=== PATIENT | male | born 1990 | race Two or more races ===

== ENCOUNTER 2025-02-22 17:20 | Emergency (ER) | payer SELFPAY ==
[2025-02-22 18:17] VITALS: BP 155/94; PULSE 86; RESP 18; TEMP 36.8; O2SAT 98; BMI 31.9
--- NOTE | 2025-02-22 19:26 | EDNOTE_ITS ---
ED General RME/HPI General Chief complaint: Dental/Oral/Throat Stated complaint: Syncope X 1week ago, sore throat, cough Time Seen by Provider: 02/22/25 19:14 Arrival date/time: 02/22/25 17:20 RME / HPI RME / HPI narrative: 34-year-old male presents with 1 week history of cough, sore throat, fever, and chills. Unknown temperature at home. His sputum is clear. He denies any runny nose or nasal congestion, ear pain, nausea or vomiting, diarrhea or abdominal pain. He states 1 week ago he passed out from coughing, has had none since. Related Data Home Medications ?Medication ?Instructions ?Recorded ?Confirmed Acetaminophen * (TYLENOL *) 1 tab PO Q4-6HRPRN PRN EMA N #0 tabs 07/06/14 docusate sodium 100 mg capsule 100 mg PO QDAY PRN CONS TIPATION #0 07/06/14 (Colace) caps levetiracetam 500 mg tablet 500 mg PO BID #0 tabs 10/18 (Keppra) Previous Rx's ?Medication ?Instructions ?Recorded albuterol sulfate 90 mcg/actuation 2 puff inhalation Q 4H PRN 02/22/25 aerosol inhaler shortness of breath or wheez ing #8.5 grams azithromycin 250 mg tablet See Rx Instructions PO .COM PLEX #6 02/22/25 (Zithromax Z-Ashwin) tabs benzonatate 200 mg capsule 200 mg PO TID PRN cough #15 caps 02/22/25 Allergies Allergy/AdvReac Type Severity Reaction Status Date / Time NKA* Allergy Uncoded 02/22/25 17:26 Review of Systems Review of Systems Systems Reviewed: All systems reviewed, normal except as documented Past Medical History Social History SMOKING STATUS: Former smoker ED Exam Narrative Physical exam: Alert and oriented 34-year-old male, no acute distress. Lungs are clear, regular rate and rhythm. Blood pressure 155/94, pulse 86, respirations 18 nonlabored, temp 98.3, O2 sat 98% on room air. TMs are without erythema, canals are clear, nares are pale and boggy, nose frontal or maxillary sinus tenderness. Pharynx is with mild erythema and no exudate. Course Course Course Narrative: Influenza A/B-, COVID swab negative, rapid strep negative. 2 view chest x-ray negative for acute process. Decadron 10 mg p.o. ordered. DuoNeb 3 mL ordered. Quality Measures none Orders Category Date Time Status Bedside Influenza A&B Antigen Test NOW Care 02/22/25 19:29 Completed XR chest 2V Stat Exams 02/22/25 19:29 Completed COVID-19 Antigen (In-House) Stat Lab 02/22/25 19:52 Completed Strep A Rapid Stat Lab 02/22/25 19:52 Completed Albuterol/Ipratr Rt Dian [Duoneb Rt Dian] Med 02/22/25 21:56 Once 3 ml INH X1 ONE Dexamethasone Inj [Decadron Inj] Med 02/22/25 21:56 Once 4 mg PO X1 ONE Vital Signs Vital signs: Vital Signs Temperature 98.3 F 02/22/25 18:17 Pulse Rate 86 02/22/25 18:17 Respiratory Rate 18 02/22/25 18:17 Blood Pressure 155/94 H 02/22/25 18:17 Pulse Oximetry (%) 98 02/22/25 18:17 Oxygen Delivery Method Room Air 02/22/25 18:17 Procedures -ED Procedure Comment DuoNeb 3 mL Decadron 10 mg p.o. Discharge Plan Plan Patient Disposition: HOME (Self Care) Discharge Disposition comment: Stable and improved Prescriptions/Referrals Prescriptions/Med Rec: New azithromycin [Zithromax Z-Ashwin] 250 mg tablet See Rx Instructions .ROUTE .COMPLEX Qty: 6 0RF Rx Instructions: For 250 mg dose pack: take 500 mg today (day 1), then 250 mg for 4 days (days 2-5) albuterol sulfate 90 mcg/actuation HFA aerosol inhaler 2 puff inhalation Q4H PRN (Reason: shortness of breath or wheezing) Qty: 8.5 0RF benzonatate 200 mg capsule 200 mg PO TID PRN (Reason: cough) Qty: 15 0RF No Action Acetaminophen * (TYLENOL *) 325 MG tablet 1 tab PO Q4-6HRPRN PRN (Reason: PAIN) Qty: 0 Patient Comments: FOR FEVER OR PAIN levetiracetam [Keppra] 500 MG tablet 500 mg PO BID Qty: 0 docusate sodium [Colace] 100 MG capsule 100 mg PO QDAY PRN (Reason: CONSTIPATION) Qty: 0 Referrals: No Primary/Family,Physician [Primary Care Provider] - In 1 week Problem List Clinical Impression: Bronchitis Patient/Caregiver Discharge Instructions Education Materials: ED Bronchitis with Wheezing (Adult) Additional Instructions: Take the antibiotics as prescribed and complete the course even though you may be feeling better. Follow-up with your primary care physician in 24 to 48 hours. Return to the ED for any new or worsening symptoms. Print Language: Frisian Stand Alone Forms: Kendra Award Info., Patient Portal Info Letter PA/SLIP COVER SEAMSTRESS Supervising Physician PA/SLIP COVER SEAMSTRESS Supervising Physician: Dr Eda JACKSON Narrative [facility] hospital course: 34-year-old male presents with 1 week history of cough, sore throat, fever, and chills. Unknown temperature at home. His sputum is clear. He denies any runny nose or nasal congestion, ear pain, nausea or vomiting, diarrhea or abdominal pain. He states 1 week ago he passed out from coughing, has had none since. Alert and oriented 34-year-old male, no acute distress. Lungs are clear, regular rate and rhythm. Blood pressure 155/94, pulse 86, respirations 18 nonlabored, temp 98.3, O2 sat 98% on room air. TMs are without erythema, canals are clear, nares are pale and boggy, nose frontal or maxillary sinus tenderness. Pharynx is with mild erythema and no exudate. Influenza A/B-, COVID swab negative, rapid strep negative. 2 view chest x-ray negative for acute process. Decadron 10 mg p.o. ordered. DuoNeb 3 mL ordered. Procedures done or offered: Decadron 10 mg p.o. ordered. DuoNeb 3 mL ordered. Clinical Information Provided by patient Medical Records Reviewed None Meds/Rx Considered, not Ordered None Labs/Rad/Tests considered, not Ordered Describe details: Influenza A/B-, COVID swab negative, rapid strep negative. 2 view chest x-ray negative for acute process. Chronic Illness/Social Conditions which may negatively complicate care or outcome(s)-explain: None or not applicable EKG EKG not done Lab Interpretation Labs: none and interpreted by me Lab(s) interpretation(s): Influenza A/B-, COVID swab negative, rapid strep negative. Imaging Imaging interpretation: see narrative above Provider imaging interpretation(s): 2 view chest x-ray negative for acute process. Medication Administration(s) Decadron, DuoNeb Diagnosis Differential diagnosis: Influenza, COVID, strep pharyngitis, pneumonia, bronchitis Differential dx and/or dx ruled out: Influenza, COVID, strep, pneumonia Most likely dx, and/or detailed dx discussion: Bronchitis Dispositon Disposition: Discharge Home
--- NOTE | 2025-02-22 19:29 | XR_ITS ---
Examination: PA lateral chest 2 views TECHNIQUE: Upright PA lateral chest 2 views Date and time: February 22, 20252009 hours INDICATIONS: Sore throat popping 1 week. FINDINGS: Normal heart size. Lungs are clear. The osseous structures are intact IMPRESSION: No active disease
[2025-02-22 20:26] LABS: Strep A Rapid Negative (Negative)
[2025-02-22 20:30] LABS: COVID-19 Antigen (In-House) Negative (Negative)
[2025-02-22] MEDS: DEXAMETHASONE SOD PHOS INJ 10 MG/ML VIAL PO (22:01)
[2025-02-22 22:04] VITALS: PULSE 91; RESP 20; O2SAT 100
[2025-02-22] MEDS: ALBUTEROL/IPRATROPIUM (Duoneb) RT SOL 3 ML NEBU INH (22:04)
== END 2025-02-22 22:36 | disposition home or self-care (01) ==
PROVIDERS: Physician Assistant; Emergency Provider Emergency Medicine
DX: J40 Bronchitis, not specified as acute or chronic (principal); Z87.891 Personal history of nicotine dependence
CPT/HCPCS: 71046; 87400; 87651; 87811; 94640; 99283; A9270; J1100